=== PATIENT | male | born 1955 | race Caucasian/White ===

== ENCOUNTER 2020-05-24 07:19 | Day surgery (SDC) | payer OTHER ==
[2020-05-24 07:49] VITALS: BMI 34.9
[2020-05-24 09:08] VITALS: TEMP 97.5
[2020-05-24 09:52] VITALS: BP 144/72; PULSE 50
== END 2020-05-24 10:01 | disposition home or self-care (01) ==
LOC: JASU-ENDO 07:19
PROVIDERS: ATTEND Internal Medicine Gastroenterology
PROC: 0DB38ZX Excision of Lower Esophagus, Via Natural or Artificial Opening Endoscopic, Diagnostic (ICD-10-PCS; 2020-05-24)
PROC: 0DB78ZX Excision of Stomach, Pylorus, Via Natural or Artificial Opening Endoscopic, Diagnostic (ICD-10-PCS; 2020-05-24)
PROC: 0DJD8ZZ Inspection of Lower Intestinal Tract, Via Natural or Artificial Opening Endoscopic (ICD-10-PCS; 2020-05-24)
PROC: 0DJD8ZZ Inspection of Lower Intestinal Tract, Via Natural or Artificial Opening Endoscopic (ICD-10-PCS; principal; 2020-05-24 08:00)
DX: Z12.11 Encounter for screening for malignant neoplasm of colon (principal); K29.50 Unspecified chronic gastritis without bleeding; K21.9 Gastro-esophageal reflux disease without esophagitis; K44.9 Diaphragmatic hernia without obstruction or gangrene
CPT/HCPCS: 88305-TC